=== PATIENT | male | born 1950 | race Caucasian/White ===

== ENCOUNTER → 2016-10-26 | Outpatient (CLI) | payer MEDICARE, BC ==
[~2016-10-26] MED LIST: ALPHAGAN OP; ALPHAGAN OPHTH D5 ML OP; BENICAR HCT 12.1 TA1 PO; CARDI-OMEGA1000 MG PO; CIALIS20 MG PO; CLOPIDOGREL BIS75 MG PO; ED ZITHROM6 TAB/BOTT PO; FORADIL IH; LIPITOR 10MG10 MG PO; METHOTREXA2.5 MG/TAB PO; MULTIPLE VITAMI1 CAP PO; PANTOPRAZOLE40 MG PO; SPIRIVA18 MCG IH; STIOLTO RESPIMAT4 GM IH; TECFIDERA240 M1 PO; TRILIPIX 135MG PO; VITAMIN D 1001000 IU PO; VITAMIN E PO; ZINC NATURAL50 MG PO; ZYRTEC10 MG PO
== END ==
LOC: RAD 12:11
DX: G35 Multiple sclerosis (principal); I49.9 Cardiac arrhythmia, unspecified; G95.9 Disease of spinal cord, unspecified
CPT/HCPCS: A9579

== ENCOUNTER 2017-03-23 09:27 | Outpatient (RCR) | payer MEDICARE, BC ==
[~2017-03-23] VITALS: Ht 175.3 cm; Wt 90.9 kg
[~2017-03-23 09:27] MED LIST changes: -ALPHAGAN OP; -STIOLTO RESPIMAT4 GM IH
[2017-03-23 10:17] VITALS: BP 146/81
[2017-03-23] MEDS ORDERED: STIOLTO RESPIMAT4 GM IH (13:05)
[2017-03-23] MEDS ORDERED: ALPHAGAN OP (13:06)
[2017-03-23 13:09] VITALS: BP 169/74
[2017-03-24 09:34] VITALS: BP 143/79
[2017-03-24 11:49] VITALS: BP 169/80
[2017-03-25 09:26] VITALS: BP 134/70
[2017-03-25 11:31] VITALS: BP 146/68
--- NOTE | 2017-03-25 11:34 | NUR ---
thia patient describes feeling better after 2 doses of solu-medrol, he tolerated the last infusion well, IV dc'd after completion of the last dose, bandaid to site, no bleeding noted, he is dismissed ambulatory to care of spouse
== END 2017-03-25 13:00 | disposition home or self-care (01) ==
LOC: AMSURD 09:27
DX: G35 Multiple sclerosis (principal)
CPT/HCPCS: J2930; J7050

== ENCOUNTER 2017-08-25 15:13 | Outpatient (RCR) | payer MEDICARE, BC ==
[~2017-08-25] VITALS: Ht 175.3 cm; Wt 90.9 kg
[~2017-08-25 15:13] MED LIST changes: +ALPHAGAN OP; +STIOLTO RESPIMAT4 GM IH
[2017-08-25 15:50] VITALS: BP 135/65
[2017-08-25] MEDS ORDERED: OCREVUS300 MG/10 IV (15:52)
[2017-08-25] MEDS ORDERED: BENICAR HCT 12.1 TA1 PO (15:56)
[2017-08-25] MEDS ORDERED: ZYRTEC ALLERGY10 MG PO (15:57)
[2017-08-25 18:01] VITALS: BP 147/89
[2017-08-26 15:08] VITALS: BP 121/82
[2017-08-26 17:27] VITALS: BP 149/99
[2017-08-27 15:01] VITALS: BP 152/73
[2017-08-27 17:18] VITALS: BP 138/71
== END 2017-08-27 18:00 | disposition home or self-care (01) ==
LOC: AMSURD 15:13
DX: G35 Multiple sclerosis (principal)
CPT/HCPCS: J2930; J7050

== ENCOUNTER 2017-09-15 19:21 | Outpatient (RCR) | payer MEDICARE, BC ==
[~2017-09-15] VITALS: Ht 175.3 cm; Wt 90.9 kg
[~2017-09-15 19:21] MED LIST changes: +OCREVUS300 MG/10 IV; +ZYRTEC ALLERGY10 MG PO
[2017-09-15 19:55] VITALS: BP 158/65
[2017-09-15 20:54] VITALS: BP 160/68
[2017-09-15] MEDS ORDERED: MUCINEX DM 60 M1 TER PO (21:11)
[2017-09-15] MEDS ORDERED: PREDNISONE10 MG PO (21:11)
[2017-09-15] MEDS ORDERED: ZITHROMAX Z PA250 MG PO (21:12)
[2017-09-16 16:48] VITALS: BP 129/69
[2017-09-16 19:51] VITALS: BP 137/65
[2017-09-17 17:50] VITALS: BP 150/68
[2017-09-17 19:59] VITALS: BP 152/79
== END 2017-09-17 20:00 | disposition home or self-care (01) ==
LOC: AMSURD 19:21
DX: G35 Multiple sclerosis (principal)
CPT/HCPCS: J2930; J7050

== ENCOUNTER 2017-12-13 11:00 | Outpatient (RCR) | payer MEDICARE, BC ==
[~2017-12-13 11:00] MED LIST changes: +MUCINEX DM 60 M1 TER PO; +PREDNISONE10 MG PO; +ZITHROMAX Z PA250 MG PO
== END 2017-12-13 11:30 | disposition home or self-care (01) ==
LOC: PT 11:00
DX: G35 Multiple sclerosis (principal)
CPT/HCPCS: G8978-GP; G8979-GP

== ENCOUNTER 2018-05-04 18:25 | Outpatient (RCR) | payer MEDICARE, BC ==
[~2018-05-04] VITALS: Ht 175.3 cm; Wt 90.9 kg
[2018-05-04 18:53] VITALS: BP 117/68
[2018-05-04 21:16] VITALS: BP 121/70
--- NOTE | 2018-05-04 21:16 | NUR ---
IV INFUSION COMPLETED, IV IN LEFT HAND FLUSHED AND LOCKED, WRAPPED WITH COBAN TO SECURE AND LEFT IN PLACE FOR TOMORROWS INFUSION, JUST ARRIVED, D/C VITALS TAKEN, PATIENT ABLE TO TRANSFER SELF INTO WHEELCHAIR, NURSE WHEELS HIM OUT TO PRIVATE VEHICLE THAT HE IS ABLE TO GET HIMSELF INTO, TO DRIVE HIM HOME, WILL RETURN TOMMOROW FOR SECOND FOR 4 INFUSIONS
[2018-05-05 18:35] VITALS: BP 132/63
[2018-05-05 21:07] VITALS: BP 147/71
== END 2018-05-05 21:00 | disposition home or self-care (01) ==
LOC: AMSURD 18:25
DX: G35 Multiple sclerosis (principal)
CPT/HCPCS: J2930; J7050

== ENCOUNTER 2018-08-25 10:00 | Outpatient (RCR) | payer MEDICARE, BC | END 2018-08-25 10:30 | disposition home or self-care (01) | LOC: PT 10:00 | DX: G35 Multiple sclerosis (principal); R29.898 Other symptoms and signs involving the musculoskeletal system; E55.9 Vitamin D deficiency, unspecified | CPT/HCPCS: G8978-GP; G8979-GP ==

== ENCOUNTER 2019-01-14 09:57 | Outpatient (RCR) | payer MEDICARE, BC ==
[2019-01-09 15:10] VITALS: BP 148/59
[2019-01-09 15:15] VITALS: BP 148/59
[2019-01-09 18:48] VITALS: BP 155/75
[2019-01-10 14:02] VITALS: BP 143/68
[2019-01-10 16:34] VITALS: BP 157/80
[2019-01-11 13:58] VITALS: BP 130/70
[~2019-01-14] VITALS: Ht 175.3 cm; Wt 90.9 kg
[~2019-01-14 09:57] MED LIST changes: +XALATAN 2.5 ML2.5 ML OP
[2019-01-14 10:03] VITALS: BP 172/89
[2019-01-14 12:20] VITALS: BP 160/80
== END 2019-01-14 12:30 | disposition home or self-care (01) ==
LOC: AMSURD 09:57
DX: G35 Multiple sclerosis (principal)
CPT/HCPCS: J2930; J7050

== ENCOUNTER → 2019-10-26 | Day surgery (SDC) | payer MEDICARE, BC | LOC: MSO 08:05 | DX: K22.70 Barrett's esophagus without dysplasia (principal); K21.9 Gastro-esophageal reflux disease without esophagitis; D50.9 Iron deficiency anemia, unspecified; G35 Multiple sclerosis; Z88.6 Allergy status to analgesic agent; Z88.8 Allergy status to other drugs, medicaments and biological substances; Z79.02 Long term (current) use of antithrombotics/antiplatelets; Z86.73 Personal history of transient ischemic attack (TIA), and cerebral infarction without residual deficits | CPT/HCPCS: 00813; J2704; J7120 ==

== ENCOUNTER → 2019-11-09 | Outpatient (CLI) | payer MEDICARE, BC | LOC: RAD 09:00 | DX: K57.30 Diverticulosis of large intestine without perforation or abscess without bleeding (principal); K80.20 Calculus of gallbladder without cholecystitis without obstruction; Q61.2 Polycystic kidney, adult type; D53.9 Nutritional anemia, unspecified ==

== ENCOUNTER 2020-02-04 10:11 | Emergency (ER) | payer MEDICARE, BC ==
[~2020-02-04 10:11] MED LIST changes: -CARDI-OMEGA1000 MG PO; -CLOPIDOGREL BIS75 MG PO; +CLOPIDOGREL PO; +DAILY VALUE1 EACH PO; +FISH OIL 1000MG1 CAP PO; -LIPITOR 10MG10 MG PO; +LIPITOR20 M2 PO; -MULTIPLE VITAMI1 CAP PO; +NATURAL ZINC50 MG PO; +NATURE'S BLEND400 IU PO; +PANTOPRAZOLE SO40 MG PO; -PANTOPRAZOLE40 MG PO; -VITAMIN D 1001000 IU PO; +VITAMIN D32000 UNI2 PO; -VITAMIN E PO; -XALATAN 2.5 ML2.5 ML OP; +XALATAN 2.5 ML2.5 ML OU; -ZINC NATURAL50 MG PO; -ZYRTEC ALLERGY10 MG PO; +ZYRTEC10 M3 PO
[2020-02-04 10:56] LABS: ALBUMIN 3.9 g/dL (3.4-4.8)
[2020-02-04 10:57] LABS: CALCIUM 10.7 mg/dL (8.3-10.5); EOS # 0.4 (0.04-0.40); EOS % 3.3 % (0.0-4.0); HEMATOCRIT 34.4 % (42.0-52.0); HEMOGLOBIN 11.2 g/dL (13.5-18.0); LYMPH# 1.4 (1.50-4.00); MEAN CELL VOLUME 93 fl (78-100); MEAN CORPUSCULAR HEMOGLOBIN 30 pg (27-31); MEAN CORPUSCULAR HGB CONC 33 g/dL (33-37); MEAN PLATELET VOLUME 10.5 fl (7.4-10.4); MONO # 1.2 (0.20-0.80); PLATELET COUNT 338 K/mm3 (130-400); RED BLOOD COUNT 3.72 M/mm3 (4.20-5.60); RED CELL DISTRIBUTION WIDTH 13.9 % (11.5-14.5)
[2020-02-04 10:59] LABS: TOTAL PROTEIN 7.4 g/dL (6.2-8.1)
[2020-02-04 11:00] LABS: TOTAL BILIRUBIN 0.6 mg/dL (0.2-1.2)
[2020-02-04 11:16] LABS: POTASSIUM 3.8 mmol/L (3.5-5.1)
[2020-02-04 12:04] LABS: URINE COLOR YELLOW
[2020-02-04 12:21] LABS: URINE APPEARANCE CLOUDY; URINE BILIRUBIN NEGATIVE (NEGATIVE); URINE BLOOD TRACE (NEGATIVE); URINE GLUCOSE NEGATIVE (NEGATIVE); URINE KETONE NEGATIVE (NEGATIVE); URINE LEUKOCYTE ESTERASE 1+ (NEGATIVE); URINE NITRATE NEGATIVE (NEGATIVE); URINE PROTEIN(semi-quant) TRACE mg/dL (NEGATIVE); URINE UROBILINOGEN NORMAL (NORMAL); URINE WBC >50 /hpf (0-3)
[2020-02-04 12:22] LABS: URINE MUCUS PRESENT (NOT PRESENT)
[2020-02-04] MEDS ORDERED: OLMESARTAN MEDO20 MG PO (12:24)
[2020-02-04] MEDS ORDERED: HYDROCHLOROTH12.5 M1 PO (12:24)
[2020-02-04] MEDS ORDERED: CALCIUM 600600 M2 PO (12:25)
[2020-02-04] MEDS ORDERED: NATURAL VITAM1000 MG PO (12:26)
[2020-02-04] MEDS ORDERED: FEOSOL325 MG PO (12:26)
[2020-02-04 17:15] VITALS: BP 125/67
== END 2020-02-04 17:43 | disposition home or self-care (01) ==
LOC: ED 10:11
PROVIDERS: Family Medicine
DX: G35 Multiple sclerosis (principal); I12.9 Hypertensive chronic kidney disease with stage 1 through stage 4 chronic kidney disease, or unspecified chronic kidney disease; N18.9 Chronic kidney disease, unspecified; N39.0 Urinary tract infection, site not specified; E86.0 Dehydration; J44.9 Chronic obstructive pulmonary disease, unspecified; Z87.891 Personal history of nicotine dependence; Z79.02 Long term (current) use of antithrombotics/antiplatelets
CPT/HCPCS: A4216; J0696; J2930; J7030; J7050

== ENCOUNTER → 2020-02-05 | Outpatient (CLI) | payer MEDICARE, BC ==
[2020-02-04 17:15] VITALS: BP 125/67
[~2020-02-05] MED LIST changes: +CALCIUM 600600 M2 PO; +FEOSOL325 MG PO; +HYDROCHLOROTH12.5 M1 PO; +NATURAL VITAM1000 MG PO; +OLMESARTAN MEDO20 MG PO
[2020-02-05 10:26] LABS: POTASSIUM 4.4 mmol/L (3.5-5.1)
[2020-02-05 10:27] LABS: CALCIUM 9.7 mg/dL (8.3-10.5)
== END ==
LOC: LAB 09:30
PROVIDERS: Family Medicine
DX: G35 Multiple sclerosis (principal)

== ENCOUNTER 2020-02-08 09:48 | Outpatient (RCR) | payer MEDICARE, BC ==
[2020-02-05 10:52] VITALS: BP 111/54
[2020-02-05 11:51] VITALS: BP 115/54
--- NOTE | 2020-02-05 13:30 | NUR ---
Dr. Arevalo notified of abnormal lab results.
[2020-02-06 11:40] VITALS: BP 106/55
[2020-02-06 12:56] VITALS: BP 113/63
[2020-02-07 10:38] VITALS: BP 153/76
[2020-02-07 11:39] VITALS: BP 127/63
[~2020-02-08] VITALS: Ht 175.3 cm; Wt 73.4 kg
[2020-02-08 09:55] VITALS: BP 135/64
[2020-02-08 10:18] LABS: HEMATOCRIT 31.1 % (42.0-52.0); HEMOGLOBIN 9.9 g/dL (13.5-18.0); MEAN CELL VOLUME 92 fl (78-100); MEAN CORPUSCULAR HEMOGLOBIN 29 pg (27-31); MEAN CORPUSCULAR HGB CONC 32 g/dL (33-37); MEAN PLATELET VOLUME 10.4 fl (7.4-10.4); PLATELET COUNT 350 K/mm3 (130-400); RED BLOOD COUNT 3.39 M/mm3 (4.20-5.60); RED CELL DISTRIBUTION WIDTH 14.1 % (11.5-14.5); WHITE BLOOD COUNT 12.3 K/mm3 (4.8-10.8)
[2020-02-08 10:19] LABS: POTASSIUM 3.3 mmol/L (3.5-5.1)
[2020-02-08 10:20] LABS: CALCIUM 8.7 mg/dL (8.3-10.5)
[2020-02-08 10:50] LABS: LYMPHOCYTE 7 % (20-51); MONOCYTE 4 % (3-10); NEUTROPHILS 89 % (42-75)
[2020-02-08 11:23] VITALS: BP 131/68
== END 2020-02-08 18:00 | disposition home or self-care (01) ==
LOC: AMSURD 09:48
PROVIDERS: Family Medicine
DX: I12.9 Hypertensive chronic kidney disease with stage 1 through stage 4 chronic kidney disease, or unspecified chronic kidney disease (principal); N18.4 Chronic kidney disease, stage 4 (severe); D63.1 Anemia in chronic kidney disease; D50.9 Iron deficiency anemia, unspecified; Z79.2 Long term (current) use of antibiotics; Z79.899 Other long term (current) drug therapy
CPT/HCPCS: A4216; J0696; J2930; J7050

== ENCOUNTER → 2020-02-12 | Outpatient (CLI) | payer MEDICARE, BC ==
[2020-02-08 11:23] VITALS: BP 131/68
[2020-02-12 09:09] LABS: EOS # 0.1 (0.04-0.40); EOS % 1.2 % (0.0-4.0); HEMATOCRIT 33.6 % (42.0-52.0); LYMPH# 1.7 (1.50-4.00); MEAN CELL VOLUME 92 fl (78-100); MEAN CORPUSCULAR HEMOGLOBIN 30 pg (27-31); MEAN CORPUSCULAR HGB CONC 33 g/dL (33-37); MEAN PLATELET VOLUME 10.3 fl (7.4-10.4); MONO # 0.7 (0.20-0.80); NEU # 7.2 (1.40-6.50); PLATELET COUNT 358 K/mm3 (130-400); RED BLOOD COUNT 3.65 M/mm3 (4.20-5.60)
[2020-02-12 09:18] LABS: POTASSIUM 3.8 mmol/L (3.5-5.1)
[2020-02-12 09:19] LABS: CALCIUM 9.5 mg/dL (8.3-10.5)
[2020-02-12 09:53] LABS: URINE WBC 0-1 /hpf (0-3)
== END ==
LOC: LAB 08:35
PROVIDERS: Internal Medicine
DX: N18.4 Chronic kidney disease, stage 4 (severe) (principal)

== ENCOUNTER → 2020-02-22 | Outpatient (CLI) | payer MEDICARE, BC ==
[2020-02-08 11:23] VITALS: BP 131/68
[2020-02-22 11:33] LABS: POTASSIUM 4.3 mmol/L (3.5-5.1)
[2020-02-22 11:35] LABS: CALCIUM 10.3 mg/dL (8.3-10.5)
== END ==
LOC: LAB 10:59
PROVIDERS: Internal Medicine Nephrology
DX: I12.9 Hypertensive chronic kidney disease with stage 1 through stage 4 chronic kidney disease, or unspecified chronic kidney disease (principal); N18.3 Chronic kidney disease, stage 3 (moderate)

== ENCOUNTER 2020-03-08 09:00 | Emergency (ER) | payer MEDICARE, BC ==
[~2020-03-08] VITALS: Wt 73.5 kg
[~2020-03-08 09:00] MED LIST changes: -NATURAL ZINC50 MG PO; +PHARMASSURE ZIN50 MG PO; -VITAMIN D32000 UNI2 PO; +VITAMIN D325 MC1 PO
[2020-03-08] MEDS ORDERED: ELIQUIS2.5 MG PO (09:49)
[2020-03-08 09:50] LABS: HEMATOCRIT 32.8 % (42.0-52.0); HEMOGLOBIN 10.4 g/dL (13.5-18.0); MEAN CELL VOLUME 92 fl (78-100); MEAN CORPUSCULAR HEMOGLOBIN 29 pg (27-31); MEAN CORPUSCULAR HGB CONC 32 g/dL (33-37); MEAN PLATELET VOLUME 9.6 fl (7.4-10.4); PLATELET COUNT 335 K/mm3 (130-400); RED BLOOD COUNT 3.55 M/mm3 (4.20-5.60); RED CELL DISTRIBUTION WIDTH 13.7 % (11.5-14.5); WHITE BLOOD COUNT 7.5 K/mm3 (4.8-10.8)
[2020-03-08] MEDS ORDERED: METOPROLOL SUCC25 M1 PO (09:50)
[2020-03-08 09:53] LABS: ALBUMIN 3.7 g/dL (3.4-4.8); POTASSIUM 4.3 mmol/L (3.5-5.1)
[2020-03-08 09:54] LABS: CALCIUM 10.9 mg/dL (8.3-10.5)
[2020-03-08 09:55] LABS: TOTAL PROTEIN 6.6 g/dL (6.2-8.1)
[2020-03-08 09:56] LABS: PROTHROMBIN TIME 10.6 SECONDS (9.0-12.0)
[2020-03-08 09:57] LABS: TOTAL BILIRUBIN 0.3 mg/dL (0.2-1.2)
[2020-03-08 10:20] LABS: LYMPHOCYTE 24 % (20-51); MONOCYTE 11 % (3-10); NEUTROPHILS 65 % (42-75)
[2020-03-08 10:34] LABS: URINE APPEARANCE CLEAR; URINE BILIRUBIN NEGATIVE (NEGATIVE); URINE BLOOD NEGATIVE (NEGATIVE); URINE COLOR YELLOW; URINE GLUCOSE NEGATIVE (NEGATIVE); URINE KETONE NEGATIVE (NEGATIVE); URINE LEUKOCYTE ESTERASE NEGATIVE (NEGATIVE); URINE NITRATE NEGATIVE (NEGATIVE); URINE PROTEIN(semi-quant) 1+ mg/dL (NEGATIVE); URINE UROBILINOGEN NORMAL (NORMAL); URINE WBC 0-1 /hpf (0-3)
[2020-03-08 11:25] VITALS: BP 109/67
== END 2020-03-08 11:44 | disposition home or self-care (01) ==
LOC: ED 09:00
PROVIDERS: Physician Assistant
DX: N18.9 Chronic kidney disease, unspecified (principal); G35 Multiple sclerosis; R53.1 Weakness; I10 Essential (primary) hypertension; Z86.73 Personal history of transient ischemic attack (TIA), and cerebral infarction without residual deficits; Z90.89 Acquired absence of other organs; Z79.01 Long term (current) use of anticoagulants
CPT/HCPCS: A4340

== ENCOUNTER → 2020-04-08 | Outpatient (CLI) | payer MEDICARE, BC ==
[~2020-04-08] MED LIST changes: +ELIQUIS2.5 MG PO; +METOPROLOL SUCC25 M1 PO
[2020-04-08 11:14] LABS: HEMATOCRIT 31.5 % (42.0-52.0)
[2020-04-08 11:25] LABS: POTASSIUM 3.9 mmol/L (3.5-5.1)
[2020-04-08 11:26] LABS: CALCIUM 9.9 mg/dL (8.3-10.5)
== END ==
LOC: LAB 10:23
PROVIDERS: Internal Medicine
DX: I10 Essential (primary) hypertension (principal)

== ENCOUNTER → 2020-05-08 | Outpatient (CLI) | payer MEDICARE, BC ==
[~2020-05-08] MED LIST changes: +ATORVASTATIN CA20 MG PO; -CALCIUM 600600 M2 PO; +CALCIUM CARBON650 M2 PO; +CEFDINIR300 MG PO; +OLMESARTAN MEDOX5 MG PO; +OXY
[2020-05-08 10:18] LABS: POTASSIUM 4.1 mmol/L (3.5-5.1)
[2020-05-08 10:19] LABS: CALCIUM 9.3 mg/dL (8.3-10.5)
== END ==
LOC: LAB 09:35
PROVIDERS: Internal Medicine
DX: I12.9 Hypertensive chronic kidney disease with stage 1 through stage 4 chronic kidney disease, or unspecified chronic kidney disease (principal); N18.3 Chronic kidney disease, stage 3 (moderate); G35 Multiple sclerosis

== ENCOUNTER 2020-05-22 10:36 | Emergency (ER) | payer MEDICARE, BC ==
[~2020-05-22] VITALS: Wt 75.5 kg
[2020-05-22 11:16] LABS: EOS # 0.3 (0.04-0.40); EOS % 4.2 % (0.0-4.0); HEMATOCRIT 33.6 % (42.0-52.0); HEMOGLOBIN 11.1 g/dL (13.5-18.0); LYMPH# 1.2 (1.50-4.00); MEAN CELL VOLUME 93 fl (78-100); MEAN CORPUSCULAR HEMOGLOBIN 31 pg (27-31); MEAN CORPUSCULAR HGB CONC 33 g/dL (33-37); MEAN PLATELET VOLUME 8.9 fl (7.4-10.4); MONO # 0.6 (0.20-0.80); NEU # 4.8 (1.40-6.50); PLATELET COUNT 274 K/mm3 (130-400); RED BLOOD COUNT 3.61 M/mm3 (4.20-5.60); RED CELL DISTRIBUTION WIDTH 12.6 % (11.5-14.5); WHITE BLOOD COUNT 6.9 K/mm3 (4.8-10.8)
[2020-05-22 11:27] LABS: CALCIUM 10.5 mg/dL (8.3-10.5)
[2020-05-22 12:15] LABS: URINE APPEARANCE CLEAR; URINE BILIRUBIN NEGATIVE (NEGATIVE); URINE BLOOD NEGATIVE (NEGATIVE); URINE COLOR YELLOW; URINE GLUCOSE NEGATIVE (NEGATIVE); URINE KETONE NEGATIVE (NEGATIVE); URINE LEUKOCYTE ESTERASE NEGATIVE (NEGATIVE); URINE NITRATE NEGATIVE (NEGATIVE); URINE PROTEIN(semi-quant) TRACE mg/dL (NEGATIVE); URINE UROBILINOGEN NORMAL (NORMAL)
[2020-05-22 13:32] VITALS: BP 156/69
== END 2020-05-22 13:53 | disposition home or self-care (01) ==
LOC: ED 10:36
PROVIDERS: Physician Assistant
DX: G35 Multiple sclerosis (principal)

== ENCOUNTER 2020-06-12 10:11 | Outpatient (RCR) | payer MEDICARE, BC ==
[2020-06-11 12:10] VITALS: BP 113/93
[2020-06-11 14:40] VITALS: BP 142/79
[~2020-06-12] VITALS: Wt 75.5 kg
[~2020-06-12 10:11] MED LIST changes: +BENICAR5 MG PO
[2020-06-12 10:17] VITALS: BP 146/68
[2020-06-12 12:24] VITALS: BP 149/72
== END 2020-06-12 12:52 | disposition home or self-care (01) ==
LOC: AMSURD 10:11
DX: Z01.89 Encounter for other specified special examinations (principal)
CPT/HCPCS: J2930; J7050